=== PATIENT | male | born 1980 | race American Indian/Alaskan Native ===

== ENCOUNTER 2019-10-15 19:02 | Emergency (ER) | payer OTHER ==
[~2019-10-15] VITALS: Ht 172.7 cm; Wt 70.5 kg
[2019-10-15] MEDS ORDERED: LIDOcaine 1% W/epiNEPHrine 1:200,000 10ml vial IJ ONE (19:20)
[2019-10-15 19:56] VITALS: BP 142/75
== END 2019-10-15 19:57 | disposition home or self-care (01) ==
LOC: ER 19:03
DX: S01.111A Laceration without foreign body of right eyelid and periocular area, initial encounter (principal); W22.8XXA Striking against or struck by other objects, initial encounter; Y93.89 Activity, other specified; Y92.89 Other specified places as the place of occurrence of the external cause; Y99.8 Other external cause status
CPT/HCPCS: 12011; 99282

== ENCOUNTER 2020-10-25 17:23 | Emergency (ER) | payer OTHER ==
[~2020-10-25] VITALS: Ht 172.7 cm; Wt 72.7 kg
[2020-10-25 17:26] VITALS: BP 100/61
== END 2020-10-25 17:55 | disposition home or self-care (01) ==
LOC: ER 17:23
DX: Z02.89 Encounter for other administrative examinations (principal); F12.90 Cannabis use, unspecified, uncomplicated
CPT/HCPCS: 99281

== ENCOUNTER 2020-10-28 21:47 | Emergency (ER) | payer OTHER ==
[~2020-10-28] VITALS: Ht 172.7 cm; Wt 72.7 kg
--- NOTE | 2020-10-28 22:12 | NUR ---
pt is resting quietly on gurney, talking full sentences, resp even and unlabored
[2020-10-28 23:50] VITALS: BP 121/85
[2020-10-30] MEDS ORDERED: PRED20TA PO (10:22)
== END 2020-10-28 23:53 | disposition home or self-care (01) ==
LOC: ER 21:47
DX: T78.40XA Allergy, unspecified, initial encounter (principal); F12.90 Cannabis use, unspecified, uncomplicated; Z88.2 Allergy status to sulfonamides; Z88.8 Allergy status to other drugs, medicaments and biological substances; X58.XXXA Exposure to other specified factors, initial encounter
CPT/HCPCS: 99281; 99283

== ENCOUNTER 2020-12-14 17:02 | Emergency (ER) | payer MEDICAID ==
[~2020-12-14] VITALS: Ht 172.7 cm; Wt 69.5 kg
[2020-12-14 17:04] VITALS: BP 119/59
== END 2020-12-14 18:37 | disposition home or self-care (01) ==
LOC: ER 17:02
DX: M25.562 Pain in left knee (principal); F12.90 Cannabis use, unspecified, uncomplicated; Z88.1 Allergy status to other antibiotic agents; Z88.8 Allergy status to other drugs, medicaments and biological substances
CPT/HCPCS: 29505; 73564; 99283

== ENCOUNTER → 2020-12-25 | Emergency (ER) | payer MEDICAID ==
[~2020-12-25] VITALS: Ht 172.7 cm; Wt 68.8 kg
[~2020-12-25] MED LIST: AMOX-100 PO; LIDO20SO16 PO
[2020-12-25 21:43] VITALS: BP 119/77
== END | disposition home or self-care (01) ==
LOC: ER 21:29
DX: K12.0 Recurrent oral aphthae (principal); K13.79 Other lesions of oral mucosa; F12.90 Cannabis use, unspecified, uncomplicated; Z88.1 Allergy status to other antibiotic agents; Z88.8 Allergy status to other drugs, medicaments and biological substances; Z79.2 Long term (current) use of antibiotics; Z79.899 Other long term (current) drug therapy
CPT/HCPCS: 99283

== ENCOUNTER 2021-02-10 09:36 | Emergency (ER) | payer MEDICAID ==
[~2021-02-10] VITALS: Ht 172.7 cm; Wt 73.3 kg
[~2021-02-10 09:36] MED LIST changes: -AMOX-100 PO
[2021-02-10 09:44] VITALS: BP 111/49
[2021-02-10] MEDS ORDERED: CIPR10DR LEFT EAR (11:11)
== END 2021-02-10 11:25 | disposition home or self-care (01) ==
LOC: ER 09:36
DX: H60.92 Unspecified otitis externa, left ear (principal); J02.9 Acute pharyngitis, unspecified; R51.9 Headache, unspecified; F12.90 Cannabis use, unspecified, uncomplicated; Z88.2 Allergy status to sulfonamides; Z88.8 Allergy status to other drugs, medicaments and biological substances; Z79.2 Long term (current) use of antibiotics; Z79.899 Other long term (current) drug therapy
CPT/HCPCS: 99283

== ENCOUNTER 2021-12-10 08:43 | Emergency (ER) | payer MEDICAID ==
[~2021-12-10] VITALS: Ht 172.7 cm; Wt 80.0 kg
[2021-12-10 08:54] VITALS: BP 111/66
[2021-12-10] MEDS ORDERED: TRIA15CR61 TOP (09:17)
== END 2021-12-10 09:29 | disposition home or self-care (01) ==
LOC: ER 08:44
DX: S40.862A Insect bite (nonvenomous) of left upper arm, initial encounter (principal); S40.861A Insect bite (nonvenomous) of right upper arm, initial encounter; S20.369A Insect bite (nonvenomous) of unspecified front wall of thorax, initial encounter; S20.469A Insect bite (nonvenomous) of unspecified back wall of thorax, initial encounter; F12.90 Cannabis use, unspecified, uncomplicated; R21 Rash and other nonspecific skin eruption; Z88.2 Allergy status to sulfonamides; Z88.8 Allergy status to other drugs, medicaments and biological substances; Z79.899 Other long term (current) drug therapy; W57.XXXA Bitten or stung by nonvenomous insect and other nonvenomous arthropods, initial encounter; Y93.89 Activity, other specified; Y92.89 Other specified places as the place of occurrence of the external cause; Y99.8 Other external cause status
CPT/HCPCS: 99283

== ENCOUNTER 2024-07-29 16:14 | Emergency (ER) | payer MEDICAID ==
[~2024-07-29] VITALS: Ht 172.7 cm; Wt 72.1 kg
[2024-07-29 16:16] VITALS: BP 104/53; PULSE 70; RESP 16; TEMP 97.8; O2SAT 96
[2024-07-29] MEDS ORDERED: AMOX500C2 PO (16:48)
== END 2024-07-29 17:10 | disposition home or self-care (01) ==
LOC: ER 16:14
DX: K04.7 Periapical abscess without sinus (principal); F12.90 Cannabis use, unspecified, uncomplicated; Z88.2 Allergy status to sulfonamides; Z88.1 Allergy status to other antibiotic agents; Z79.899 Other long term (current) drug therapy
CPT/HCPCS: 99283

== ENCOUNTER 2025-02-05 11:23 | Emergency (ER) | payer MEDICAID, OTHER ==
[~2025-02-05] VITALS: Ht 152.4 cm; Wt 70.0 kg
[2025-02-05 15:06] LABS: LEUKOCYTE ESTERASE ,URINE NEGATIVE (Neg); NITRITES, URINE NEGATIVE (Neg); OCCULT BLOOD,URINE MODERATE (Neg)
[2025-02-05 15:09] LABS: UA COLLECTION TYPE NON-SPECIFIED
[2025-02-05 15:16] LABS: CAL OXALATE CRYSTALS FEW /HPF (NEGATIVE); MUCUS STRANDS FEW /LPF (Neg); SQUAMOUS EPITHELIAL CELL,UR NONE SEEN /LPF (FEW)
--- NOTE | 2025-02-05 16:09 | Physician Documentation ---
History of Present Illness ~ Chief Complaint: Blood in Urine Stated Complaint: BLOOD IN URINE Time Seen by MD: 15:50 Primary Medical Doctor: Vanessa Thomas [facility] Source: patient (11) HPI Patient comes in for evaluation of hematuria. He reports no trauma and no penile discharge and no infectious symptoms, but this morning on awakening had bright red blood and some small clots with initial void and then three more after that. Subsequent to that the blood has cleared and the urine is just a little dark. He denies any abdominal pain, fever, or dysuria associated with this. He denies any pain or abnormality to the genitals. He has never had prior problems with hematuria, although he reports what sounds like a prostate infection when he was in his early 20s. He also notes that he had a spontaneously bruised looking testicle a month ago without evidence of trauma. This resolved. Medication Reconciliation Allergies: Coded Allergies: sulfamethoxazole (Verified Allergy, Unknown, RASH, 07/29/24) trimethoprim (Verified Allergy, Unknown, RASH, 07/29/24) Scheduled Lidocaine Hcl (Xylocaine Viscous), 5 ML PO Q2H PRN SORE THROAT Past Medical History Past Medical History: No Pertinent History Past Surgical History: noncontributory Smoking Status: Current every day smoker Alcohol Use: Occasionally Drug Use: cocaine Occupation: employed Review of Systems All Other Systems at this time: Reviewed and Negative Physical Exam Vital Signs: Temperature: 98.8, Source: Oral, Heart Rate: 71, Respiratory Rate: 18, BP: 106/70, Pulse Oximetry: 98, Weight: 70.000 Physical Exam General: Pt is awake, alert, oriented x4 in no acute distress and well appearing. Head: Normocephalic and atraumatic. Eyes: Conjunctiva normal. ENT: Mucous membranes moist. Neck: Supple. Chest: Clear to auscultation bilaterally, without rales, rhonchi, or wheezes. There is no accessory muscle use or retractions. Cardiac: Regular rate and rhythm without murmurs, gallops or rubs. Palpation of the chest wall is normal. Abd: Soft, nondistended, nontender, with normoactive bowel sounds. No guarding or rebound. Extremities: Within normal limits without cyanosis, clubbing, or edema. Skin: Rosalie, warm and dry with no significant rash appreciated. Neuro: Cranial nerves II-XII grossly intact. The gait is normal. Progress Results/Orders Results/Orders Orders - MERCY OTTO MD Chlam/Gc Amp Ur (02/05/25 14:53) Ultrasound Kidney Non Vasc (02/05/25 16:06) Completed Orders - MERCY OTTO MD Ua W/Microscopic, Cult If Ind (02/05/25 12:15) Cbc/Diff (02/05/25 16:06) BMP (02/05/25 16:06) Ultrasound Kidney Non Vasc (02/05/25 16:06) Vital Signs 02/05/25 02/05/25 02/05/25 02/05/25 11:53 16:03 17:29 17:56 Temp 98.8 98.8 Pulse 71 57 60 Resp 18 14 15 15 B/P (MAP) 106/70 110/76 (87) 120/55 Pulse Ox 98 96 98 O2 Flow Rate 0 Laboratory Tests Test 02/05/25 12:15 02/05/25 16:34 Urine Specimen Description Non-specified Urine Color Dark yellow Urine Clarity Clear Urine pH 6.0 Urine Specific [place] >=1.030 Urine Protein Negative Urine Glucose (UA) Negative Urine Ketones Negative Urine Occult Blood Moderate H Urine Nitrite Negative Urine Bilirubin Negative Urine Urobilinogen 1.0 Urine Leukocyte Esterase Negative Urine RBC 10-20 Urine WBC 0-4 Urine Squamous Epithelial Cells None seen Urine Calcium Oxalate Crystals Few Urine Bacteria None seen Urine Mucus Few Urine Culture Indicated Not ind Volume Urine Centrifuged 10 ml Urine Comment White Blood Count 5.2 Red Blood Count 4.96 Hemoglobin 15.8 Hematocrit 44.5 Mean Corpuscular Volume 89.6 Mean Corpuscular Hemoglobin 31.8 H Mean Corpuscular Hemoglobin Concent 35.4 Red Cell Distribution Width 12.4 Platelet Count 188 Mean Platelet Volume 7.9 Neutrophils (%) (Auto) 51.7 Lymphocytes (%) (Auto) 37.7 Monocytes (%) (Auto) 8.6 Eosinophils (%) (Auto) 1.7 Basophils (%) (Auto) 0.3 Neutrophils # (Auto) 2.7 Lymphocytes # (Auto) 1.9 Monocytes # (Auto) 0.4 Eosinophils # (Auto) 0.1 Basophils # (Auto) 0.0 CBC Comment Sodium Level 142 Potassium Level 3.9 Chloride Level 106 Carbon Dioxide Level 27.0 Anion Gap 9 Blood Urea Nitrogen 15 Creatinine 0.93 Estimated GFR/1.73 m2 87 BUN/Creatinine Ratio 16.1 Glucose Level 115 H Calcium Level 8.7 Albumin 4.1 Chemistry Comments Medical Decision Making Additional Comment Patient presenting with some transient gross hematuria, and only mild micro scopic hematuria at this point. No evidence for urinary tract infection. No painful symptoms suggestive of prostate or upper tract involvement. Patient denies any recent sexual activity, and doubts that he has an STI, but this also has been sent. Imaging of his upper tract shows no evidence for renal edema, or hydronephrosis or obstruction. Bladder normal-appearing on ultrasound. At this time, as the symptoms have resolved and he will need further outpatient evaluation, I am going to defer CT scan due to the radiation dose. Patient has primary care at the [facility] and can be re-evaluated there, and subsequently referred to Urology for further outpatient workup and possible cystoscopy. He understands his symptoms may be transient and benign, possibly associated with exertion or drug use, could represent an infectious or malignant pathology, a blood dyscrasia, and that all of this requires further outpatient workup. He will follow up in [place] and understands he may return to the emergency department if his symptoms recur or worsen before then. Departure Time of Disposition: 17:40 Disposition: 01 HOME / SELF CARE / HOMELESS Impression: Primary Impression: Hematuria Qualified Codes: R31.9 - Hematuria, unspecified Condition: Stable Discharge Instructions: Hematuria, Adult Additional Instructions: Please follow-up with the [facility] this week, as you will need follow-up, and referral to a urologist for further workup of your bleeding. We will call you if your gonorrhea or chlamydia tests come back positive. Return to the emergency department if you have recurrent significant bleeding, fever, pain, or any other concerns. Referrals: NO PRIMARY CARE PROVIDER (PCP) Education Educated: Patient Educated regarding: diagnosis, treatment Signature Scribe Signature: Attestation: MERCY OTTO MD Feb 05, 2025 16:09
--- NOTE | 2025-02-05 16:43 | RADIOLOGY REPORT ---
EXAM: US ULTRASOUND KIDNEY NON VASC INDICATION: bilateral: r/o hydronephrosis or kidney abn TECHNIQUE: Multiple real-time sonographic images of the kidneys and bladder were obtained. COMPARISON: None Findings: Right kidney measures 10.8 x 4.3 x 4.2 cm with normal contours, echotexture, and cortical thickness. No evidence of hydronephrosis, calculi, cystic or solid lesions. Left kidney measures 11.2 x 4.1 x 4.2 cm with normal contours, echotexture, and cortical thickness. N o evidence of hydronephrosis, calculi, cystic or solid lesions. Urinary bladder is unremarkable without evidence of abnormal wall thickening, mass, or calculi. Prevo id volume 45.89 mL. Postvoid volume was not obtained. Impression: 1. Unremarkable sonographic study of the bilateral kidneys and urinary bladder.
[2025-02-05 16:55] LABS: MEAN PLATELET VOLUME 7.9 FL (7.4-10.4); RED CELL DISTRIBUTION WIDTH 12.4 % (11.5-14.5)
[2025-02-05 17:02] LABS: CREATININE 0.93 MG/DL (0.60-1.10); TOTAL CARBON DIOXIDE 27.0 MMOL/L (24-32); eCRCL 70 ML/MIN; eGFR 87 ML/MIN
[2025-02-05 17:56] VITALS: BP 120/55; PULSE 60; RESP 15; TEMP 98.8; O2SAT 98
== END 2025-02-05 18:02 | disposition home or self-care (01) ==
LOC: ER 11:23
DX: R31.9 Hematuria, unspecified (principal); F17.200 Nicotine dependence, unspecified, uncomplicated; Z88.1 Allergy status to other antibiotic agents; Z88.2 Allergy status to sulfonamides
CPT/HCPCS: 36415; 76770; 80048; 81001; 85025; 87491; 99284

== ENCOUNTER 2025-02-19 19:21 | Emergency (ER) | payer OTHER ==
[~2025-02-19] VITALS: Ht 172.7 cm; Wt 59.9 kg
[2025-02-19 19:30] VITALS: RESP 15
[2025-02-19 21:40] VITALS: BP 134/78; PULSE 63; TEMP 98.6; O2SAT 100
[2025-02-19] MEDS ORDERED: TAMS-55 PO (21:45)
--- NOTE | 2025-02-19 21:45 | Physician Documentation ---
History of Present Illness ~ Chief Complaint: Groin Pain Stated Complaint: SWOLLEN PROSTATE Time Seen by MD: 20:16 Primary Medical Doctor: maral Bridges Mode of Arrival: Dropped Off HPI 44 year old male with known prostate difficulties recently and frequency/urgency/reduced force of stream, stopping and starting of stream. Has follow up with urologist but would like prescription for flomax today. Denies fever, dysuria, abdominal pain at this time. Medication Reconciliation Allergies: Coded Allergies: sulfamethoxazole (Verified Allergy, Unknown, RASH, 02/19/25) trimethoprim (Verified Allergy, Unknown, RASH, 02/19/25) Scheduled Lidocaine Hcl (Xylocaine Viscous), 5 ML PO Q2H PRN SORE THROAT Past Medical History Past Medical History: No Pertinent History Past Surgical History: noncontributory Alcohol Use: Occasionally Drug Use: cocaine Occupation: employed Review of Systems All Other Systems at this time: Reviewed and Negative Physical Exam Vital Signs: RN Vital Signs have been reviewed: Yes, Temperature: 98.6, Source: Oral, Heart Rate: 63, Respiratory Rate: 15, BP: 134/78, Pulse Oximetry: 100, Weight: 59.900 Oxygen Flow Rate: 0 Physical Exam HEENT: PERRL, moist oral mucosa, EOMI Pulmonary: No respiratory distress MSK: no deformity Skin: w/d/i, no rash Neuro: alert, nonfocal Psych: normal affect Progress Results/Orders Results/Orders Orders - MIN HALEY MD * Bladder Scan / Post Residual (02/19/25 20:16) Urinalysis, Cult If Indicated (02/19/25 20:52) Vital Signs 02/19/25 02/19/25 02/19/25 19:30 21:32 21:40 Temp 98.6 98.6 Pulse 86 63 Resp 15 B/P (MAP) 111/76 134/78 (96) Pulse Ox 98 100 O2 Flow Rate 0 Medical Decision Making Findings 44 year old male with known prostate problems in the past, now with BPH symptoms. Had significant recent workup including an ultrasound of kidney/bladder and plans to follow up with PCP/urologist. Will provide flomax prescription today and return precautions. Additional Comment Ddx = BPH, prostatitis, bladder tumor, neurogenic bladder Departure Disposition: 01 HOME / SELF CARE / HOMELESS Impression: Primary Impression: Urinary retention Condition: Stable Discharge Instructions: Acute Urinary Retention, Male Referrals: NO PRIMARY CARE PROVIDER (PCP) Prescriptions Tamsulosin Hcl* (Flomax*) 0.4 Mg Cap.sr.24h 0.4 MG PO DAILY, #30 CAP Prov: MIN HALEY MD 02/19/25 Education Educated: Patient Educated regarding: diagnosis, treatment, prognosis, need for follow up Signature Scribe Signature: . Attestation: . MIN HALEY MD Feb 19, 2025 21:45
[2025-02-19 21:50] LABS: LEUKOCYTE ESTERASE ,URINE NEGATIVE (Neg); NITRITES, URINE NEGATIVE (Neg); OCCULT BLOOD,URINE NEGATIVE (Neg)
[2025-02-19 21:53] LABS: UA COLLECTION TYPE CLN CATCH MIDSTREAM
[2025-02-19] MEDS: CefTRIAXone 250MG IM Kit w/LIDOcaine IM ONE (22:47)
== END 2025-02-19 23:04 | disposition home or self-care (01) ==
LOC: ER 19:22
DX: R33.9 Retention of urine, unspecified (principal); F14.90 Cocaine use, unspecified, uncomplicated; Z88.2 Allergy status to sulfonamides; Z88.8 Allergy status to other drugs, medicaments and biological substances; Z79.899 Other long term (current) drug therapy; Z72.89 Other problems related to lifestyle
CPT/HCPCS: 36415; 51798; 81003; 87491; 87591; 96372; 99284; J0696